=== PATIENT | female | born 1945 | race Hispanic/Latino ===

== ENCOUNTER 2017-01-12 06:31 | Inpatient (IN) | payer OTHER, MEDICARE ==
[2017-01-12 06:37] VITALS: BMI 22.2
[2017-01-12 07:29] LABS: ADD MANUAL DIFF? NO
[2017-01-12 07:37] LABS: BASO # 0.04 K/mm3 (0.0-2.0); BASO % 0.5 % (0.0-3.0); EOS # 0.1 (0.0-0.7); EOS % 1.1 % (1.5-5.0); GRAN # 6.28 (1.4-6.5); GRAN % 77.3 % (50.0-68.0); HEMATOCRIT 40.3 % (36.0-48.0); LYMPH % 12.6 % (22.0-35.0); MEAN CELL VOLUME 89.4 fL (80.0-105.0); MEAN CORPUSCULAR HEMOGLOBIN 29.5 pg (25.0-35.0); MEAN PLATELET VOLUME 9.3 fl (7.0-11.0); MONO # 0.7 (0.1-0.6); MONO % 8.5 % (1.0-6.0); PLATELET COUNT 315 10^3/uL (120.0-450.0); RED CELL DISTRIBUTION WIDTH 13.3 % (11.5-14.5); WHITE BLOOD COUNT 8.1 10^3/ul (4.5-11.0)
--- NOTE | 2017-01-12 07:45 | ED PDOC ---
Arrival/HPI - General Chief Complaint: Shortness Of Breath Time Seen by Provider: 01/12/17 06:56 Historian: Patient - History of Present Illness Narrative History of Present Illness (Text): 01/12/17 07:42 71 yo female, h/o Asthma, presents to the ED c/o sore throat, runny nose/ sneezing, cough, wheezing and shortness of breathe x 4 days. Cough is mostly nonproductive and at times with yellowish green phlegm. It started 4 days ago and then after the first day her symptoms got better but then today she felt much worse as she was coming to work. No chest pain or back pain. No fever, chills or bodyaches. No h/o intubation. PMD: Dr. Mandel Wire Puller: Dr. Zapien Past Medical History - Provider Review Nursing Documentation Reviewed: Yes - Infectious Disease Hx of Infectious Diseases: None - Tetanus Immunization Tetanus Immunization: Unknown - Reproductive Menopause: Yes - Past Medical History Past Medical History: No Previous - Cardiac Hx Pacemaker: No - Pulmonary Hx Respiratory Disorders: Yes Hx Bronchitis: Yes Hx Chronic Obstructive Pulmonary Disease (COPD): Yes Hx Emphysema: Yes Other/Comment: current smoker - Neurological Hx Neurological Disorder: No - HEENT Hx HEENT Disorder: No Other/Comment: wears glasses - Renal Hx Renal Disorder: No - Endocrine/Metabolic Hx Endocrine Disorders: No - Hematological/Oncological Hx Blood Disorders: No - Integumentary Hx Dermatological Disorder: No - Musculoskeletal/Rheumatological Hx Musculoskeletal Disorders: No Hx Falls: No - Gastrointestinal Hx Gastrointestinal Disorders: Yes Hx Gall Bladder Disease: Yes - Genitourinary/Gynecological Hx Genitourinary Disorders: No - Psychiatric Hx Emotional Abuse: No Hx Physical Abuse: No Hx Substance Use: No - Surgical History Hx Cholecystectomy: Yes Hx Hysterectomy: Yes Other/Comment: tonsillectomy - Anesthesia Hx Anesthesia: Yes Hx Anesthesia Reactions: No Hx Malignant Hyperthermia: No - Suicidal Assessment Feels Threatened In Home Enviroment: No Family/Social History - Physician Review Nursing Documentation Reviewed: Yes Family/Social History: No Known Family HX Smoking Status: Light Smoker < 10 Cigarettes Daily Hx Alcohol Use: No Hx Substance Use: No Hx Substance Use Treatment: No Allergies/Home Meds Allergies/Adverse Reactions: Allergies moxifloxacin HCl [From Avelox] Allergy (Verified 03/04/16 16:13) DIARRHEA RECTAL BLEEDING Home Medications: Home Meds Medication Instructions Recorded Confirmed Albuterol Sulfate [Proair Hfa] 1 puff INH PRN PRN 06/16/15 03/04/16 Tiotropium [place] Inhaler 1 puff INH DAILY 06/16/15 03/04/16 [Spiriva Inhalation Handihaler Device] Budesonide/Formoterol Fumarate 1 aer IH Q12H PRN 02/28/16 03/04/16 [Symbicort 160-4.5 Mcg Inhaler] Review of Systems - Physician Review All systems were reviewed & negative as marked: Yes - Review of Systems Constitutional: Normal Eyes: Normal ENT: Normal Respiratory: SOB, Cough, Sputum, Wheezing Cardiovascular: Normal. absent: Chest Pain, Palpitations, Edema, Calf Pain, POST , Orthopnea Gastrointestinal: Normal Genitourinary Female: Normal Musculoskeletal: Normal Skin: Normal Neurological: Normal Endocrine: Normal Hemo/Lymphatic: Normal Psychiatric: Normal Physical Exam Vital Signs Reviewed: Yes Vital Signs Temp Pulse Resp BP Pulse Ox 01/12/17 07:57 106 H 22 151/74 H 99 01/12/17 06:49 98.7 F 01/12/17 06:45 24 95 01/12/17 06:38 120 H 24 187/108 H 88 L Temperature: Afebrile Blood Pressure: Normal Pulse: Tachycardic Respiratory Rate: Normal Appearance: Positive for: Well-Appearing, Non-Toxic, Comfortable Pain Distress: None Mental Status: Positive for: Alert and Oriented X 3 - Systems Exam Head: Present: Atraumatic, Normocephalic Pupils: Present: PERRL Extroacular Muscles: Present: EOMI Conjunctiva: Present: Normal Mouth: Present: Moist Mucous Membranes Pharnyx: Present: Normal. No: ERYTHEMA, EXUDATE Neck: Present: Normal Range of Motion Respiratory/Chest: Present: Good Air Exchange, Wheezes. No: Respiratory Distress, Accessory Muscle Use, Decreased Breath Sounds, Rales, Retracting, Rhonchi, Tachypneic Cardiovascular: Present: Regular Rate and Rhythm, Normal S1, S2. No: Murmurs Abdomen: Present: Normal Bowel Sounds. No: Tenderness, Distention, Peritoneal Signs Back: Present: Normal Inspection Upper Extremity: Present: Normal Inspection. No: Cyanosis, Edema Lower Extremity: Present: Normal Inspection. No: Edema Neurological: Present: GCS=15, CN II-XII Intact, Speech Normal Skin: Present: Warm, Dry, Normal Color. No: Rashes Psychiatric: Present: Alert, Oriented x 3, Normal Insight, Normal Concentration Medical Decision Making ED Course and Treatment: 01/12/17 07:45 71 yo female with asthma exacerbation r/o PNA -- Labs -- CXR, EKG -- Duonebs, Solumedrol IV -- Reevaluate and disposition 01/12/17 08:19 Chest X-ray read and interpreted by me, which shows no cardiomegaly, no pneumothorax, no effusions. 01/12/17 10:06 Patient improving but still having symptoms. Lungs with wheezing trace b/l. Oxy sat 88% on RA. Will continue NC 2L. CXR negative for PNA. Will continue to tx with albuterol nebs. Discussed case with Dr. Mandel who will place on observation , med/surg. - Lab Interpretations Lab Results: 01/12/17 07:15 01/12/17 07:15 Lab Results 01/12/17 07:15: WBC 8.1, RBC 4.51, Hgb 13.3, Hct 40.3, MCV 89.4, MCH 29.5, MCHC 33.0, RDW 13.3, Plt Count 315, MPV 9.3, Gran % 77.3 H, Lymph % (Auto) 12.6 L, [place] % (Auto) 8.5 H, Eos % (Auto) 1.1 L, Baso % (Auto) 0.5, Gran # 6.28, Lymph # 1.0 L, [place] # 0.7 H, Eos # 0.1, Baso # 0.04, Sodium 139, Potassium 4.4, Chloride 100, Carbon Dioxide 27, Anion Gap 16, BUN 13, Creatinine 0.8, Est GFR ( Amer) > 60, Est GFR (Non-Af Amer) > 60, Random Glucose 121 H, Calcium 9.4, Lactate Dehydrogenase 401, Total Creatine Kinase 57, Troponin I 0.02 I have reviewed the lab results: Yes Interpretation: All labs normal - RAD Interpretation Radiology Orders: 01/12/17 07:23 CHEST PORTABLE [RAD] Stat [facility]: ED Physician - EKG Interpretation Interpreted by ED Physician: Yes (Sinus tachy at [address] elevations, nl intervals) Type: 12 lead EKG - Medication Orders Current Medication Orders: Discontinued Medications Albuterol Sulfate (Albuterol 0.083% Inhal Neha (2.5 Mg/3 Ml) Ud) 2.5 mg IH STAT STA Stop: 01/12/17 09:52 Last Admin: 01/12/17 10:02 Dose: 2.5 MG Albuterol/Ipratropium (Duoneb 3 Mg/0.5 Mg (3 Ml) Ud) 3 ml IH Q15M HIREN Stop: 01/12/17 08:01 Last Admin: 01/12/17 08:11 Dose: 3 ML Methylprednisolone (Solu-Medrol) 125 mg IVP STAT STA Stop: 01/12/17 07:23 Last Admin: 01/12/17 07:42 Dose: 125 MG IVP Administration Document 01/12/17 07:42 [facility] (Rec: 01/12/17 07:46 [id number]) Charges for Administration # of IVP Administrations 1 Disposition/Present on Arrival - Present on Arrival Any Indicators Present on Arrival: No History of DVT/PE: No History of Uncontrolled Diabetes: No Urinary Catheter: No History of Decub. Ulcer: No History Surgical Site Infection Following: None - Disposition Have Diagnosis and Disposition been Completed?: Yes Diagnosis: Obstructive chronic bronchitis with exacerbation Disposition: HOSPITALIZED Disposition Time: 09:53 Patient Plan: Observation Condition: FAIR
[2017-01-12] MEDS: Albuterol-Ipratrop 3 mg / 0.5 (3 ml) UD IH SCH ×5 (07:46→20:09)
[2017-01-12 07:55] LABS: BLOOD UREA NITROGEN 13 mg/dL (7-21); CALCIUM 9.4 mg/dL (8.4-10.5); CARBON DIOXIDE 27 mmol/L (21-33); CHLORIDE 100 mmol/L (95-110); GFR AFRICAN-AMERICAN > 60; GLUCOSE,RANDOM 121 mg/dL (70-110); POTASSIUM 4.4 mmol/L (3.6-5.0); SODIUM 139 mmol/L (132-148)
[2017-01-12 08:08] LABS: TROPONIN I 0.02 ng/mL
--- NOTE | 2017-01-12 08:17 | RAD ---
HISTORY: cough r/o pna COMPARISON: 03/05/2016 FINDINGS: LUNGS: No active pulmonary disease. PLEURA: No significant pleural effusion identified, no pneumothorax apparent. CARDIOVASCULAR: Normal. OSSEOUS STRUCTURES: No significant abnormalities. VISUALIZED UPPER ABDOMEN: Normal. OTHER FINDINGS: None. IMPRESSION: No active disease.
[2017-01-12] MEDS ORDERED: Albuterol 0.083% Inhal Sol (2.5 mg/3 mL) UD IH STA (09:51)
[2017-01-12] MEDS ORDERED: Albuterol-Ipratrop 3 mg / 0.5 (3 ml) UD IH PRN (10:49)
[2017-01-12] MEDS: MethylPREDNISolone 40 mg Vial IVP SCH ×2 (11:14→21:17)
--- NOTE | 2017-01-12 11:29 | CON ---
DATE: 01/12/2017 REASON FOR CONSULTATION: Chronic obstructive pulmonary disease. REFERRING PHYSICIAN: Dr. Prado. HISTORY OF PRESENT ILLNESS: The patient is a 71-year-old female with past medical history significant for advanced chronic obstructive pulmonary disease, asthma, positive extensive smoking history -- still smokes, who presents to [facility] with a 3-day history of worsening shortness of breath at rest, dyspnea on exertion, cough, and minimal sputum production. There is no history of chest pain, coughing up of blood or chest pain -- made worse with deep respirations. There is no history of temperatures, chills or infectious exposure. There is no history of night sweats, weight loss or appetite change prior to the above events. No history of leg or calf pains. No history of syncope or diaphoresis. No history of recent travel or trauma. REVIEW OF SYSTEMS: The patient does state to a sore throat over the past few days. No nausea, vomiting or diarrhea. No acute urinary symptoms. No new musculoskeletal or neurologic complaints. Rest of the review of systems is negative. ALLERGIES: AVELOX. SOCIAL HISTORY: Positive for extensive tobacco usage -- still smokes. No alcohol. FAMILY HISTORY: No inheritable diseases. HOME MEDICATIONS: Include Spiriva, Symbicort, and ProAir. PHYSICAL EXAMINATION: GENERAL: The patient is mildly short of breath at the present time. She is in no acute distress. She is not using accessory muscles for breathing. VITAL SIGNS: Temperature is 98.7, pulse on the monitor is 88, respiratory rate 20/22, blood pressure 138/69. Oxygen saturation on nasal cannula is 95%. HEENT: Normocephalic, atraumatic. NECK: No JVD. CARDIOVASCULAR: Positive S1, S2. No S3. LUNGS: Decreased breath sounds at the bases. Minimal rhonchi. Minimal wheezing. EXTREMITIES: No clubbing, cyanosis, or edema. Calves are nontender to palpation. GASTROINTESTINAL: Abdomen is soft, nontender, nondistended. Bowel sounds are positive. SKIN: No acute rash. NEUROLOGIC: Limited at the present time. PERTINENT LABORATORY DATA: Chest x-ray was done and reviewed. There is no active disease present. CBC: White count 8.1, hemoglobin 13.3, hematocrit 40.3 , platelets of 315. Complete metabolic profile: Glucose 121. Rest of the metabolic profile is within normal limits. IMPRESSION: 1. Acute bronchitis. 2. Advanced chronic obstructive pulmonary disease. 3. Acute bronchospasm. 4. Asthma. PLAN: The patient presents to [facility] with a 3-day history of worsening pulmonary symptoms. I did review the x-ray as above. There is no active disease present. In addition, upon review of the laboratory data, there is no leukocytosis. On physical exam, the patient is in mild to moderate bronchospasm. I will start inhaled DuoNeb treatments, as well as inhaled Pulmicort. I will also start the patient on moderate-dose intravenous steroids. Cultures have been ordered and will be analyzed when feasible. Again , there is no history of temperatures. There is no leukocytosis. However, due to the age and diagnosis of the above patient, I will start oral antibiotic therapy. The patient does feel better this morning -- compared to the past few days. She is clinically improved. Additional pulmonary intervention will be based on the above results, as well as the clinical status of the patient. I will discuss the above with Dr. Prado later this morning. Thank you very much for this pulmonary consultation. Srikanth Matos MD cc: [phone] TT: 01/12/2017 11:29:07 Confirmation # [id number] Dictation # [id number] jn MTDD
--- NOTE | 2017-01-12 11:45 | CARD ---
APPROVED REPORT EKG Measurement Heart [id number] IA [id number] <Conclusion> Sinus tachycardia Septal infarct, age undetermined Abnormal ECG
[2017-01-12] MEDS: Nystatin 100,000 Units/ml Oral Susp 5 ml UD PO SCH ×3 (13:14→21:17)
--- NOTE | 2017-01-12 13:17 | CP.PCM.HP ---
History of Present Illness - History of Present Illness History of Present Illness: 71 year old female with history of COPD and asthma presents to the ER this morning with shortness of breath. The patient says she developed a sore throat about 3 days ago, but breathing fine until today. 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 She went to the ER and her oxygen saturation was 88%. Now, after receiving nebulizer treatments and IV Solumedrol , she feels better. She denies fever, chest pain or edema. Present on Admission - Present on Admission Any Indicators Present on Admission: No History of DVT/PE: No History of Uncontrolled Diabetes: No Urinary Catheter: No Decubitus Ulcer Present: No Review of Systems - EENT Nose/Mouth/Throat: Sore Throat - Cardiovascular Cardiovascular: absent: Chest Pain - Respiratory Respiratory: As Per HPI - Gastrointestinal Gastrointestinal: absent: Abdominal Pain, Change in Bowel Habits, Heartburn Past Patient History - Infectious Disease Hx of Infectious Diseases: None - Tetanus Immunizations Tetanus Immunization: Unknown - Past Social History Smoking Status: Light Smoker < 10 Cigarettes Daily - CARDIAC Hx Pacemaker: No - PULMONARY Hx Respiratory Disorders: Yes Hx Bronchitis: Yes Hx Chronic Obstructive Pulmonary Disease (COPD): Yes Hx Emphysema: Yes Other/Comment: current smoker - NEUROLOGICAL Hx Neurological Disorder: No - HEENT Hx HEENT Problems: No Other/Comment: wears glasses - RENAL Hx Chronic Kidney Disease: No - ENDOCRINE/METABOLIC Hx Endocrine Disorders: No - HEMATOLOGICAL/ONCOLOGICAL Hx Blood Disorders: No - INTEGUMENTARY Hx Dermatological Problems: No - MUSCULOSKELETAL/RHEUMATOLOGICAL Hx Musculoskeletal Disorders: No Hx Falls: No - GASTROINTESTINAL Hx Gastrointestinal Disorders: Yes Hx Gall Bladder Disease: Yes - GENITOURINARY/GYNECOLOGICAL Hx Genitourinary Disorders: No - PSYCHIATRIC Hx Emotional Abuse: No Hx Physical Abuse: No Hx Substance Use: No - SURGICAL HISTORY Hx Cholecystectomy: Yes Hx Hysterectomy: Yes Other/Comment: tonsillectomy - ANESTHESIA Hx Anesthesia: Yes Hx Anesthesia Reactions: No Hx Malignant Hyperthermia: No Meds Allergies/Adverse Reactions: Allergies Allergy/AdvReac Type Severity Reaction Status Date / Time moxifloxacin HCl Allergy DIARRHEA Verified 03/04/16 16:13 [From Avelox] Physical Exam - Constitutional Appears: No Acute Distress - Head Exam Head Exam: ATRAUMATIC, NORMOCEPHALIC - Respiratory Exam Respiratory Exam: Decreased Breath Sounds, Clear to Auscultation Bilateral. absent: Wheezes - Cardiovascular Exam Cardiovascular Exam: +S1, +S2 - GI/Abdominal Exam GI & Abdominal Exam: Normal Bowel Sounds, Soft. absent: Tenderness - Neurological Exam Neurological exam: Alert, CN II-XII Intact, Oriented x3 Results - Vital Signs Recent Vital Signs: Last Vital Signs Temp 98.9 F 01/12/17 11:13 Pulse 112 H 01/12/17 11:13 Resp 18 01/12/17 11:13 BP 123/68 01/12/17 11:13 Pulse Ox 95 01/12/17 11:13 - Labs Result Diagrams: 01/12/17 07:15 01/12/17 07:15 Assessment & Plan - Assessment and Plan (Free Text) Assessment: Acute Bronchitis COPD Asthma Smoker Plan: Patient is admitted for acute bronchitis. Pulmonary evaluation is appreciated. She is currently on duoneb respiratory treatments, pulmicort and solumedrol. She is also on zithromax and nicotine patch. She has been advised to stop smoking.
[2017-01-12] MEDS: Budesonide 0.5 mg/2 ml Inhal Susp UD IH SCH (20:09)
[2017-01-13] MEDS: Albuterol-Ipratrop 3 mg / 0.5 (3 ml) UD IH SCH ×4 (01:12→21:15)
[2017-01-13] MEDS: Budesonide 0.5 mg/2 ml Inhal Susp UD IH SCH ×2 (07:45→21:15)
[2017-01-13] MEDS: MethylPREDNISolone 40 mg Vial IVP SCH ×2 (10:33→21:32)
[2017-01-13] MEDS: Nystatin 100,000 Units/ml Oral Susp 5 ml UD PO SCH ×4 (10:34→21:32)
--- NOTE | 2017-01-13 10:35 | PN ---
DATE: 01/13/2017 SUBJECTIVE: The patient appears comfortable this morning. She is not short of breath at rest. OBJECTIVE: VITAL SIGNS: Temperature is 97.0, pulse this morning is approximately 90, respiratory rate 18, blood pressure 131/64. Oxygen saturation on nasal cannula is 97%. HEENT: Normocephalic, atraumatic. No JVD. CARDIOVASCULAR: Positive S1, S2. No S3. LUNGS: Improved breath sounds at the bases. Less rhonchi. No wheezing this morning. EXTREMITIES: No clubbing, cyanosis, or edema. Calves are nontender to palpation. GASTROINTESTINAL: Abdomen is soft, nontender, nondistended. Bowel sounds are positive. SKIN: No acute rash. NEUROLOGIC: Limited at the present time. IMPRESSION: 1. Acute bronchitis. 2. Advanced chronic obstructive pulmonary disease. 3. Acute bronchospasm. 4. Asthma. PLAN: The patient appears comfortable this morning. She is not short of breath at rest. She states she is feeling much better overall. On physical exam, her bronchospasm is certainly less this morning. In addition, oxygen saturation on nasal cannula is now 97%. I will continue with the current nebulizer treatments and decrease the intravenous steroids this morning. The patient also remains on oral antibiotic therapy. There are no temperatures noted. Clinical status of the patient is certainly improved-- compared to the initial presentation. The patient is advised to be out of bed as much as possible, and increase her activity as tolerated. She fully agrees. I will discuss the above with Dr. Prado this morning. Srikanth Matos MD cc: [phone] TT: 01/13/2017 10:35:10 Confirmation # [id number] Dictation # [id number] an TULIO
--- NOTE | 2017-01-13 10:37 | CP.PCM.PN ---
Subjective - Date & Time of Evaluation Date of Evaluation: 01/13/17 Time of Evaluation: 07:30 - Subjective Subjective: Patient says she is still having difficulty breathing. She states that her "breathing is not right." +cough Objective - Vital Signs/Intake and Output Vital Signs (last 24 hours): Temp Pulse Resp BP Pulse Ox 97 F L 113 H 20 131/64 97 01/12/17 16:00 01/12/17 16:00 01/12/17 16:00 01/12/17 16:00 01/12/17 16:00 - Medications Medications: Current Medications Albuterol/Ipratropium (Duoneb 3 Mg/0.5 Mg (3 Ml) Ud) 3 ml IH Q2H PRN PRN Reason: Shortness of Breath Albuterol/Ipratropium (Duoneb 3 Mg/0.5 Mg (3 Ml) Ud) 3 ml IH [id number] [facility] Last Admin: 01/13/17 07:45 Dose: 3 ml Azithromycin (Zithromax) 500 mg PO DAILY [facility] PRN Reason: Protocol Last Admin: 01/12/17 11:17 Dose: 500 mg Budesonide (Pulmicort Respules) 0.5 mg IH [id number] [facility] Last Admin: 01/13/17 07:45 Dose: 0.5 mg Methylprednisolone (Solu-Medrol) 30 mg IVP Q12 [facility] Nicotine (Nicoderm Cq) 1 patch TD DAILY [facility] Last Admin: 01/12/17 11:41 Dose: 1 patch Nystatin (Nystatin Oral Susp) 5 ml PO QID [facility] Last Admin: 01/12/17 21:17 Dose: 5 ml - Constitutional Appears: No Acute Distress - Head Exam Head Exam: ATRAUMATIC, NORMOCEPHALIC - Respiratory Exam Respiratory Exam: Decreased Breath Sounds, Wheezes - Cardiovascular Exam Cardiovascular Exam: +S1, +S2 - GI/Abdominal Exam GI & Abdominal Exam: Soft, Normal Bowel Sounds. absent: Tenderness - Neurological Exam Neurological Exam: Alert, Awake, Oriented x3 Assessment and Plan - Assessment and Plan (Free Text) Assessment: Acute Bronchitis COPD Smoker Plan: continue IV solumedrol continue Zithromax, respiratory treatments nicotine patch discontinued due to nightmares discussed with Dr. Matos
[2017-01-14] MEDS: Albuterol-Ipratrop 3 mg / 0.5 (3 ml) UD IH SCH ×4 (02:45→19:59)
--- NOTE | 2017-01-14 07:57 | PN ---
DATE: 01/14/2017 SUBJECTIVE: The patient appears comfortable at rest. She is not short of breath. PHYSICAL EXAMINATION: VITAL SIGNS: Temperature is 98.7, pulse this morning approximately 88, respiratory rate 18/20, blood pressure 146/80. Oxygen saturation on nasal cannula is 96%. HEENT: Normocephalic, atraumatic. NECK: No JVD. CARDIOVASCULAR: Positive S1, S2. No S3. LUNGS: Minimal/less rhonchi. No wheezing. EXTREMITIES: No clubbing, cyanosis, or edema. Calves are nontender to palpation. GASTROINTESTINAL: Abdomen is soft, nontender, nondistended. Bowel sounds are positive. SKIN: No acute rash. NEUROLOGIC: Limited at the present time. IMPRESSION: 1. Acute bronchitis. 2. Advanced chronic obstructive pulmonary disease. 3. Acute bronchospasm. 4. Asthma. PLAN: The patient appears comfortable this morning. She is not short of breath at rest. She does state to feeling much better overall. However, she is still very dyspneic on exertion. On physical exam, her bronchospasm is certainly less. In addition, there is no significant alveolar arterial gradient. I will continue with the current nebulizer treatments and current intravenous steroids (decreased yesterday) for now. The patient also remains on antibiotic therapy. There are no temperatures noted. Clinical status of the patient is certainly improving. However, the overall status/prognosis of this patient does remain guarded - as she does have advanced chronic obstructive pulmonary disease and continues to smoke. I will discuss the above with Dr. Prado. Srikanth Matos MD cc: [id number] TT: 01/14/2017 07:56:45 Confirmation # [id number] Dictation # [id number] colby ANTUNEZ
[2017-01-14] MEDS: Budesonide 0.5 mg/2 ml Inhal Susp UD IH SCH ×2 (08:05→19:59)
--- NOTE | 2017-01-14 09:02 | PN ---
DATE: 01/14/2017 This patient is a 71-year-old white female. She is in room 370, bed 2. The patient was admitted wit h shortness of breath and conjunctivitis. The patient has past history of chronic lung disease. She is a smoker for many years. The patient has had past history of pneumonia and bronchitis. The thad ent also has history of pain in her jaw unrelated to the clinical condition. The patient is seen thi s morning. She still feels short of breath and weak and heaviness in the chest. PHYSICAL EXAMINATION: VITAL SIGNS: This morning, pulse is 104, respirations are 20. The patient's blood pressure 146/80, O2 sat 96% on 2 liters of oxygen. LUNGS: The patient has rhonchi. Breath sounds are diminished bilaterally. HEART: Normal sinus rhythm, sinus tachycardia. ABDOMEN: Soft. Liver, spleen not palpable. No tenderness, no masses. CENTRAL NERVOUS SYSTEM: The patient is conscious, rational, oriented. Cranial nerves are intact fro m II-XII. Her sense of smell is preserved. The patient has no motor or sensory dysfunction. Her ga it is normal excepting some weakness when she stands up and walks due to the weakness. MEDICATIONS: List consists of albuterol (DuoNeb) respiratory treatment with Mucomyst. The patient a lso gets nystatin oral suspension. The patient is on 30 mg of Solu-Medrol IV q. 12 hours today. The patient is on Zithromax 500 mg daily p.o. She is not able to tolerate the nicotine patch. She says she gets nightmares with it. It is discontinued. The patient will be given the current medical treatment. Will follow up. The donor services specialist, Dr. Ronald luz, saw patient and he is continuing to follow up with taking care of the pulmonary situation. Reg Prado MD cc: [phone] TT: 01/14/2017 09:01:37 Confirmation # [id number] Dictation # [id number] mn
[2017-01-14] MEDS: Nystatin 100,000 Units/ml Oral Susp 5 ml UD PO SCH ×4 (09:29→22:54)
[2017-01-14] MEDS: MethylPREDNISolone 40 mg Vial IVP SCH ×2 (09:29→22:54)
--- NOTE | 2017-01-14 11:02 | RAD ---
HISTORY: r/o pn or chf COMPARISON: 01/12/2017 TECHNIQUE: Chest PA and lateral FINDINGS: LUNGS: No active pulmonary disease. PLEURA: No significant pleural effusion identified. No pneumothorax apparent. CARDIOVASCULAR: Normal. OSSEOUS STRUCTURES: No significant abnormalities. VISUALIZED UPPER ABDOMEN: Normal. OTHER FINDINGS: None. IMPRESSION: No active disease.
[2017-01-14] MEDS: Acetylcysteine 20% Inhal Soln (4ml) IH SCH ×2 (14:27→19:59)
[2017-01-15] MEDS: Albuterol-Ipratrop 3 mg / 0.5 (3 ml) UD IH SCH ×4 (03:00→19:36)
[2017-01-15] MEDS: Acetylcysteine 20% Inhal Soln (4ml) IH SCH ×4 (03:00→19:36)
[2017-01-15] MEDS: Budesonide 0.5 mg/2 ml Inhal Susp UD IH SCH ×2 (08:06→19:37)
--- NOTE | 2017-01-15 08:13 | PN ---
DATE: 01/15/2017 SUBJECTIVE: The patient appears comfortable at rest. She is not short of breath. PHYSICAL EXAMINATION: VITAL SIGNS: Temperature is 98.2, pulse this morning is approximately 88, respiratory rate 18, blood pressure 129/72. Oxygen saturation on nasal cannula is 98%. HEENT: Normocephalic, atraumatic. No JVD. CARDIOVASCULAR: Positive S1, S2. No S3. LUNGS: Minimal rhonchi. Minimal wheezing this morning. EXTREMITIES: No clubbing, cyanosis, or edema. Calves are nontender to palpation. GASTROINTESTINAL: Abdomen is soft, nontender, nondistended. Bowel sounds are positive. SKIN: No acute rash. NEUROLOGIC: Limited at the present time. IMPRESSION: 1. Acute bronchitis. 2. Advanced chronic obstructive pulmonary disease. 3. Acute bronchospasm. 4. Asthma. PLAN: The patient appears comfortable this morning. She is not short of breath at rest. She does state to feeling much better overall. However, she still complains of dyspnea on exertion. On physical exam, there is still mild bronchospasm present. I will continue with the current nebulizer treatments and low-dose intravenous steroids for now. Hopefully, we can change to oral therapy in the next 24-48 hours and hopefully discharge the patient home. Clinical status of the patient is improved -- compared to the initial presentation. However, again, the overall status/prognosis of this patient does remain guarded. I will discuss the above with Dr. Prado. Srikanth Matos MD cc: [id number] TT: 01/15/2017 08:12:18 Confirmation # [id number] Dictation # [id number] en MTDD
--- NOTE | 2017-01-15 08:44 | PN ---
DATE: 01/15/2017 The patient is a 71-year-old white female. She was admitted with exacerbation of chronic bronchitis, conjunctivitis. The patient has history of pain in . The patient is also ALLERGIC TO AVELOX. The patient is still feeling lousy and short of breath on exertion. PHYSICAL EXAMINATION: VITAL SIGNS: The pulse is 107, blood pressure 129/72, respirations are 20, O2 sat 98% on 2 liters of oxygen. The patient's temperature . LUNGS: Reveals bilateral rhonchi, prolonged expiratory wheeze. HEART: Normal sinus rhythm, sinus tachycardia. ABDOMEN: Soft. Liver, spleen not palpable. CENTRAL NERVOUS SYSTEM: No focal neurological deficit. HEENT: The patient has oral infection of the mouth, probably secondary to steroid treatment. MEDICATIONS: Consist of DuoNeb. The patient is on Mucomyst with the DuoNeb. The patient is on Pulm icort twice a day. The patient is on prednisone 30 mg IV q. 12 hours. The patient is on Zithromax 5 00 mg daily. The patient's condition is improving very slowly. The patient is continuing oxygen chi atment and respiratory treatments. The respiratory therapist is going to evaluate the patient for po ssible home oxygen. It is going to be done today. We will have results and based on that, the patie nt might be able to have oxygen at home. Her condition is clinically improving. Overall prognosis i s guarded. Reg Prado MD cc: [id number] TT: 01/15/2017 08:43:35 Confirmation # [id number] Dictation # [id number] en
[2017-01-15] MEDS: Nystatin 100,000 Units/ml Oral Susp 5 ml UD PO SCH ×4 (09:04→21:33)
[2017-01-15] MEDS: MethylPREDNISolone 40 mg Vial IVP SCH ×2 (09:04→21:33)
[2017-01-16] MEDS: Albuterol-Ipratrop 3 mg / 0.5 (3 ml) UD IH SCH ×4 (01:08→20:44)
[2017-01-16] MEDS: Acetylcysteine 20% Inhal Soln (4ml) IH SCH ×4 (01:08→20:44)
[2017-01-16 07:04] LABS: ADD MANUAL DIFF? NO
[2017-01-16 07:12] LABS: BASO # 0.01 K/mm3 (0.0-2.0); BASO % 0.1 % (0.0-3.0); GRAN % 85.6 % (50.0-68.0); HEMATOCRIT 41.6 % (36.0-48.0); LYMPH % 8.1 % (22.0-35.0); MEAN CELL VOLUME 88.9 fL (80.0-105.0); MEAN CORPUSCULAR HEMOGLOBIN 29.1 pg (25.0-35.0); MEAN CORPUSCULAR HGB CONC 32.7 g/dl (31.0-37.0); MEAN PLATELET VOLUME 9.1 fl (7.0-11.0); MONO # 0.8 (0.1-0.6); MONO % 6.2 % (1.0-6.0); PLATELET COUNT 301 10^3/uL (120.0-450.0); RED CELL DISTRIBUTION WIDTH 12.8 % (11.5-14.5); WHITE BLOOD COUNT 12.2 10^3/ul (4.5-11.0)
[2017-01-16 07:25] LABS: BLOOD UREA NITROGEN 25 mg/dL (7-21); CALCIUM 9.4 mg/dL (8.4-10.5); CARBON DIOXIDE 33 mmol/L (21-33); CHLORIDE 97 mmol/L (98-107); GFR AFRICAN-AMERICAN > 60; GLUCOSE,RANDOM 111 mg/dL (70-110); POTASSIUM 4.7 mmol/L (3.6-5.0); SODIUM 138 mmol/L (132-148)
[2017-01-16] MEDS: Budesonide 0.5 mg/2 ml Inhal Susp UD IH SCH ×2 (08:10→20:44)
--- NOTE | 2017-01-16 08:28 | PN ---
DATE: 01/16/2017 SUBJECTIVE: The patient appears very comfortable this morning. She is not short of breath at rest. PHYSICAL EXAMINATION: VITAL SIGNS: Temperature is 98.2, pulse is approximately 88, respiratory rate 18/20, blood pressure 131/72. Oxygen saturation on nasal cannula is 94%-95%. HEENT: Normocephalic, atraumatic. No JVD. CARDIOVASCULAR: Positive S1, S2. No S3. LUNGS: Minimal/less rhonchi. No wheezing this morning. EXTREMITIES: No clubbing, cyanosis, or edema. Calves are nontender to palpation. GASTROINTESTINAL: Abdomen is soft, nontender, nondistended. Bowel sounds are positive. SKIN: No acute rash. NEUROLOGIC: Limited at the present time. IMPRESSION: 1. Acute bronchitis. 2. Advanced chronic obstructive pulmonary disease. 3. Acute bronchospasm. 4. Asthma. PLAN: The patient appears very comfortable this morning. She is not short of breath at rest. She states to feeling much better overall. She also has less dyspnea on exertion. On physical exam, her bronchospasm is now resolving. I will continue with the current nebulizer treatments and change to oral steroids this morning. The patient also remains on antibiotic therapy. There are no temperatures noted. All cultures are so far negative. Clinical status of the patient is significantly improved -- compared to the initial presentation. However, again, the overall status/prognosis of this patient does remain guarded -- as she does have advanced chronic obstructive pulmonary disease and continues to smoke. I will discuss the above with the attending physician. Srikanth Matos MD cc: [id number] TT: 01/16/2017 08:27:41 Confirmation # [id number] Dictation # [id number] en MTDD
[2017-01-16] MEDS: Pantoprazole 40 mg EC Tab PO SCH (09:13)
[2017-01-16] MEDS: Nystatin 100,000 Units/ml Oral Susp 5 ml UD PO SCH ×4 (09:13→21:49)
--- NOTE | 2017-01-16 09:51 | PN ---
DATE: 01/16/2017 The patient is a 71-year-old white female. She has history of chronic lung disease. She is a smoker . She is in room 378, bed 2. She was admitted with exacerbation of COPD, conjunctivitis, pain in th e jaw. The patient also has stomatitis secondary to antibiotic and steroid treatment. VITAL SIGNS: This morning the patient is sitting up in the bed. Her pulse is 90 per minute, tempera ture 98.1, blood pressure 146/86, O2 sat 99% on 2 L of oxygen. The patient desaturates to 72% when a mbulating without oxygen. The patient needs home oxygen. A concentrator will be added to her treatm ent. EXAMINATION VIA THE LUNGS: Breath sounds are diminished bilaterally. There is prolonged expiratory phase with rhonchi and wheezing. HEART: In normal sinus rhythm, sinus tachycardia. ABDOMEN: Soft. Liver, spleen not palpable. CENTRAL NERVOUS SYSTEM EXAMINATION: No focal deficit. MOUTH: There is evidence of stomatitis could be due to mycotic because of the antibiotic use. MEDICATIONS: The patient is on DuoNeb for respiratory treatment in the past, Mucomyst. The patient also takes lidocaine viscous for pain in the mouth. The patient is on nystatin oral suspension q. 6 hours. The patient is on prednisone, on a reduced dose now. The patient is on oral prednisone 40 mg per day. The patient is on Pulmicort inhaler, Zithromax 500 mg daily. The patient's diet is heart-healthy diet, 2 g sodium. She will continue with current management. Her condition is improving slowly. We have talked to her about possible discharge tomorrow. Will watch her for 1 more day with all the medications, and oral medicines which is changed from the last few days. Reg Prado MD cc: [id number] TT: 01/16/2017 09:19:29 Confirmation # [id number] Dictation # [id number] jn 01/16/2017 08:50:31
[2017-01-17] MEDS: Albuterol-Ipratrop 3 mg / 0.5 (3 ml) UD IH SCH ×2 (01:14→07:36)
[2017-01-17] MEDS: Acetylcysteine 20% Inhal Soln (4ml) IH SCH ×2 (01:14→07:36)
[2017-01-17] MEDS: Budesonide 0.5 mg/2 ml Inhal Susp UD IH SCH (07:36)
[2017-01-17] MEDS: Pantoprazole 40 mg EC Tab PO SCH (08:19)
[2017-01-17 08:40] VITALS: BP 116/70; PULSE 74; RESP 20; TEMP 98.7; O2SAT 98
--- NOTE | 2017-01-17 09:12 | PN ---
DATE: 01/17/2017 The patient is in the [facility] in [place]. She was admitted with exacerbation of chr onic obstructive lung disease and bronchitis and conjunctivitis. The patient had shortness of breath and wheezing. She is discharged today. PHYSICAL EXAMINATION: VITAL SIGNS: Pulse is 74, blood pressure 116/70, respirations are 20, O2 sat 98% on 2 liters of oxyg en. The patient has home oxygen prescribed for the patient. MEDICATIONS: The patient's medications consist of antibiotic, which is Zithromax. The patient will be getting prednisone tapering dose. The patient gets bronchodilator. She will follow up with me by end of the week on Thursday. The patient's condition is improved at this time, but needs home oxygen that is given to the patient. Reg Prado MD cc: [id number] TT: 01/17/2017 09:11:25 Confirmation # [id number] Dictation # [id number]
[2017-01-17] MEDS: Nystatin 100,000 Units/ml Oral Susp 5 ml UD PO SCH (09:20)
== END 2017-01-17 12:58 | disposition home or self-care (01) | DRG 192 ==
LOC: ED 06:31 → ERH 09:53 → 3RSO 10:55 → OBSVTOIN 01-13 08:03
PROVIDERS: ADMIT Internal Medicine; ATTEND Internal Medicine
DX: J44.0 Chronic obstructive pulmonary disease with (acute) lower respiratory infection (principal); F17.200 Nicotine dependence, unspecified, uncomplicated; J44.1 Chronic obstructive pulmonary disease with (acute) exacerbation; J20.9 Acute bronchitis, unspecified; J45.909 Unspecified asthma, uncomplicated; K12.1 Other forms of stomatitis; T36.95XA Adverse effect of unspecified systemic antibiotic, initial encounter; T38.0X5A Adverse effect of glucocorticoids and synthetic analogues, initial encounter; H10.9 Unspecified conjunctivitis; Z87.01 Personal history of pneumonia (recurrent); Z90.49 Acquired absence of other specified parts of digestive tract; Z90.710 Acquired absence of both cervix and uterus

== ENCOUNTER 2019-02-21 08:32 | Outpatient (CLI) | payer OTHER | END 2019-02-21 08:33 | disposition home or self-care (01) | LOC: RAD 08:33 ==